=== PATIENT | male | born 1985 | race Caucasian/White ===

== ENCOUNTER 2017-01-25 17:43 | Emergency (ER) | payer OTHER ==
[2017-01-25] MEDS ORDERED: DIPH/PERTUSS(ACELL)/TETANUS VAC/PF 0.5 ML SYR (>=10YO) IM ONE (20:28)
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
[2017-01-25 23:15] VITALS: BP 137/77
== END 2017-01-25 23:29 | disposition home or self-care (01) ==
LOC: ER 17:43
DX: S30.0XXA Contusion of lower back and pelvis, initial encounter (principal); S60.418A Abrasion of other finger, initial encounter; V43.62XA Car passenger injured in collision with other type car in traffic accident, initial encounter
CPT/HCPCS: 90471; 90715; 99283